=== PATIENT | female | born 1940 | race Two or more races ===

== ENCOUNTER → 2019-03-20 12:46 | Outpatient (CLI) | payer MEDICARE, SELFPAY ==
--- NOTE | 2019-03-20 12:49 | CDU_ITS ---
Reason For Study: Carotid artery stenosis Rt. Velocities/BP Lt. Velocities/BP Prox CCA 86.5/14.7 cm/sec. Prox CCA 77.7/15.1 cm/sec. Mid CCA 76/16 cm/sec. Mid CCA 90/16.3 cm/sec. Dist CCA 61.7/14.7 cm/sec. Dist CCA 81.4/17.6 cm/sec. Prox ICA 84.6/15.2 cm/sec. Prox ICA 72.8/16.3 cm/sec. Mid ICA 77.7/17.6 cm/sec. Mid ICA 95.5/22.5 cm/sec. Dist ICA 115.6/20.6 cm/sec. Dist ICA 93.7/18.8 cm/sec. Rt. ICA/CCA = 1.5. Lt. ICA/CCA = 1.2. Prox ECA 128.4/7.9 cm/sec. Prox ECA 178.4 cm/sec. Rt. Vert. 99.2/11.5 cm/sec. Lt. Vert. 56.4/11.3 cm/sec. Right Extracranial There is intimal thickening but no significant atherosclerotic plaque noted in the right common carotid artery. There is heterogeneous, smooth atherosclerotic plaque noted in the right internal carotid artery. There is intimal thickening but no significant atherosclerotic plaque noted in the right external carotid artery. Left Extracranial There is homogeneous, smooth atherosclerotic plaque noted in the left common carotid artery. There is homogeneous, smooth atherosclerotic plaque noted in the left internal carotid artery. There is heterogeneous, irregular atherosclerotic plaque noted in the left external carotid artery. Antegrade flow is noted in the left vertebral artery. Procedure Carotid Duplex [id number]. Exam performed in department. Interpretation Summary Mild (<50%) stenosis right extracranial internal carotid. Mild (<50%) stenosis left extracranial internal carotid. Flow within the left verterbral artery is antegrade. Ordering Physician: Steven Morris Referring Physician: Aggie Umanzor Performed By: Iesha Ulloa RVT
== END ==
PROVIDERS: Family Provider Family Medicine; PCP Family Medicine; Referring Provider Surgery Vascular Surgery; Visit Provider Surgery Vascular Surgery
DX: I65.23 Occlusion and stenosis of bilateral carotid arteries (principal); M81.0 Age-related osteoporosis without current pathological fracture; C44.90 Unspecified malignant neoplasm of skin, unspecified; I10 Essential (primary) hypertension; E78.70 Disorder of bile acid and cholesterol metabolism, unspecified; Z86.73 Personal history of transient ischemic attack (TIA), and cerebral infarction without residual deficits
CPT/HCPCS: 93880